=== PATIENT | male | born 1975 | race Caucasian/White ===

== ENCOUNTER 2020-07-16 08:54 | Outpatient (CLI) | payer BC | END 2020-07-16 23:59 | disposition home or self-care (01) | LOC: RAD 08:54 | PROVIDERS: ATTEND Family Medicine | DX: R10.9 Unspecified abdominal pain (principal) | CPT/HCPCS: 76881 ==

== ENCOUNTER 2020-07-19 08:34 | Outpatient (CLI) | payer BC ==
[2020-07-19] MEDS ORDERED: iohexol 300mg/ml 100ml inj. ONE (08:49)
== END 2020-07-19 23:59 | disposition home or self-care (01) ==
LOC: 64 CT 08:34
PROVIDERS: ATTEND Physician Assistant
DX: K43.9 Ventral hernia without obstruction or gangrene (principal); K80.20 Calculus of gallbladder without cholecystitis without obstruction; K76.0 Fatty (change of) liver, not elsewhere classified; K57.30 Diverticulosis of large intestine without perforation or abscess without bleeding
CPT/HCPCS: 74178; Q9967